=== PATIENT | male | born 1970 | race Caucasian/White ===

== ENCOUNTER 2017-10-17 13:42 | Emergency (ER) | payer SELFPAY ==
--- NOTE | 2017-10-17 14:08 | ED Physician Documentation ---
Upper Extremity Injury - HISTORIAN Historian: patient - HPI Stated Complaint: Laceration to webbing between thumb/index of Rt hand. Chief Complaint: Upper Extremity Injury Additional Information: Patient states that he was using a knife and accidentally cut his web space on the right hand between the thumb and index finger, feeling is normal, movement is normal. Tried to super glu the laceration last night and it is not holding. Onset: today (99) Where: home - ROS CONST: no problems - PAST HX Past History: Rt handed, other (seizure disorder) Immunizations: tetanus (? 2009) Allergies/Adverse Reactions: Allergies Allergy/AdvReac Type Severity Reaction Status Date / Time naproxen AdvReac Unknown Nausea/Vomi Verified 10/17/17 14:05 ting Home Medications: Ambulatory Orders Medication Instructions Recorded Phenytoin Sodium Extended 300 mg PO HS 12/22/14 [Dilantin] Carbamazepine [Tegretol] 10/17/17 Cephalexin [Keflex] 500 mg PO TID #30 capsule 10/17/17 - SOCIAL HX Smoking History: less than 1 pack/day Alcohol Use: none Drug Use: marijuana - FAMILY HX Family History: other (cancer) - VITAL SIGNS Vital Signs: Vital Signs Temp Pulse Resp BP Pulse Ox 76 20 112/68 98 10/17/17 15:36 10/17/17 15:36 10/17/17 15:36 10/17/17 13:42 - REVIEWED ASSESSMENTS Nursing Assessment Reviewed: Yes Vitals Reviewed: Yes Procedures Wound Location: upper extremity (right hand) Wound Length: 2.1 web space, 1.3 palm Wound's Depth, Shape: superficial, linear Wound Explored: clean Irrigated w/ Saline (ccs): 50 Betadine Prep?: Yes Anesthesia: 1% Lidocaine Volume of Anesthetic: 3cc Wound Repaired With: sutures Suture Size/Type: 5:0 Number of Sutures: 7 (5 web space, 2 on palm) Layer Closure?: No ED Results Lab/Radiology - Orders Orders: ED Orders Category Date Time Status Diph,Pertuss(Acell),Tet Vac/Pf [Adacel] Med 10/17/17 14:42 Discontinued 0.5 ml IM .STK-MED ONE Diph,Pertuss(Acell),Tet Vac/Pf [Adacel] Med 10/17/17 15:00 Discontinued 0.5 ml IM 1T Lidocaine 1% 5ml(IM or SUTURE) [Xylocaine] Med 10/17/17 14:13 Discontinued 50 mg IJ NOW ONE Upper Extremity Injury Physic - Physical Exam General Appearance: no acute distress, alert Hand: normal ROM. No: non-tender Wrist: normal inspection, non-tender, no evidence of injury, normal ROM Elbow/Forearm: normal inspection, non-tender, no evidence of injury Neuro/Vascular/Tendon: no vascular compromise, motor nml, sensation nml Skin: warm,dry Head/ENT: nml inspection, pharynx nml Neck/Back: nml inspection, non-tender Resp/CVS: chest non-tender, breath sounds nml, heart sounds nml, no resp. distress, lungs clear, reg. rate & rhythm Abdomen: non-tender Discharge Clincal Impression: Laceration of right hand Qualifiers: Encounter type: initial encounter Foreign body presence: without foreign body Qualified Code(s): S61.411A - Laceration without foreign body of right hand, initial encounter Prescriptions: Cephalexin [Keflex] 500 mg PO TID #30 capsule Referrals: Claudia Villa FNP [Primary Care Provider] - 2 Days Additional Instructions: Watch for any signs of infection, take cephalexin 3 times a day as directed. Have sutures removed in 7-10 days. Condition: Stable Disposition: 01 HOME, SELF-CARE Decision to Admit: NO Date of Decison to Admit: 10/17/17 Decision Time: 15:11
[2017-10-17] MEDS: Lidocaine 1% 5ml(IM or SUTURE)(PAIN CLINIC) IJ ONE (14:20)
[2017-10-17] MEDS ORDERED: DIPH,PERTUSS(ACELL),TET VAC/PF 0.5 ML DISP.SYRIN IM ONE (14:42)
[2017-10-17] MEDS: DIPH,PERTUSS(ACELL),TET VAC/PF 0.5 ML DISP.SYRIN IM SCH (15:00)
[2017-10-17 15:38] VITALS: BP 112/68
== END 2017-10-17 15:25 | disposition home or self-care (01) ==
LOC: ED 13:42
DX: S61.411A Laceration without foreign body of right hand, initial encounter (principal); Y92.9 Unspecified place or not applicable
CPT/HCPCS: 12002; 90715; 96372

== ENCOUNTER 2018-04-12 10:46 | Emergency (ER) | payer SELFPAY ==
[2018-04-12] MEDS ORDERED: 0.9 % SODIUM CHLORIDE 1,000 ML IV ONE (10:52)
[2018-04-12 10:57] VITALS: BP 135/120
[2018-04-12 11:07] LABS: BASOPHILS % 0.6 (0.0-1.5); EOSINOPHILS % 2.1 % (0.0-6.8); MEAN CORPUSCULAR HEMOGLOBIN 31.3 pg (28.0-34.0); MONOCYTES % 5.1 % (0.0-11.0); NEUTROPHILS # 7.5 # k/uL (1.4-7.7)
[2018-04-12 14:01] LABS: LIPASE 22 U/L (13-60); TOTAL PROTEIN 7.9 g/dL (6.0-8.5)
[2018-04-13] MEDS ORDERED: PANTOPRAZOLE SODIUM 40 MG in 0.9 % SODIUM CHLORIDE 50 ML IV ONE (10:53)
== END 2018-04-12 11:13 ==
LOC: ED 10:46
DX: Z53.9 Procedure and treatment not carried out, unspecified reason (principal)
CPT/HCPCS: 80053; 83690; 85025; S1016

== ENCOUNTER 2019-01-21 19:54 | Emergency (ER) | payer SELFPAY ==
[2019-01-21 20:25] VITALS: BP 134/87
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
[2019-01-22 06:45] LABS: BASOPHILS % 0.5 % (0.0-1.5); NEUTROPHILS # 3.6 # k/uL (1.4-7.7); eGFR (Non-African) > 60
== END 2019-01-21 20:50 | disposition home or self-care (01) ==
LOC: ED 19:54
DX: K62.5 Hemorrhage of anus and rectum (principal)
CPT/HCPCS: 80053; 82272; 85025; 99281; 99282